=== PATIENT | male | born 1985 | race Two or more races ===

== ENCOUNTER 2018-01-01 23:38 | Emergency (ER) ==
[2018-01-01 23:52] VITALS: BP 124/78; TEMP 97.8; BMI 20.5
--- NOTE | 2018-01-02 00:39 | ED.PDOC ---
General ED Provider: Dr. ALEXANDER EDWARD Chief Complaint: Sore Throat Stated Complaint: Natalya is a 32 year old male who states he has had flu like symtoms for the past week exposed to others with the same. he comes to the Er stating that he still has symptoms and wanted to be checked out. Time Seen by Physician: 00:36 Mode of Arrival: Walk-In Information Source: Patient Exam Limitations: No limitations Nursing and Triage Documentation Reviewed and Agree: Yes Reviewed sepsis parameters & appropriate labs ordered?: No System Inflammatory Response Syndrome: Not Applicable Sepsis Protocol: For patient's 13 years and over: Temp is 96.8 and below OR 101 and greater Pulse >90 BPM Resp >20/minute Acutely Altered Mental Status Are patient's symptoms suggestive of a new infection, such as: -Pneumonia -Skin, Soft Tissue -Endocarditis -UTI -Bone, Joint Infection -Implantable Device -Acute Abdominal Infection -Wound Infection -Meningitis -Blood Stream Catheter Infection -Unknown System Inflammatory Response Syndrome: Not Applicable Review of Systems - Review Of Systems Constitutional: Reports: Fever, Malaise Eyes: Reports: No symptoms Ears, Nose, Mouth, Throat: Reports: No symptoms Respiratory: Reports: No symptoms Cardiac: Reports: No symptoms GI: Reports: No symptoms : Reports: No symptoms Musculoskeletal: Reports: No symptoms Skin: Reports: No symptoms Neurological: Reports: Anxiety Endocrine: Reports: No symptoms Hematologic/Lymphatic: Reports: No symptoms All Other Systems: Reviewed and Negative Past Medical History - Past Medical History Previously Healthy: Yes Endocrine: Reports: None Cardiovascular: Reports: None Respiratory: Reports: None Hematological: Reports: None Gastrointestinal: Reports: None Genitourinary: Reports: None Neuro/Psych: Reports: Anxiety Musculoskeletal: Reports: None Cancer: Reports: None - Surgical History General Surgical History: Reports: Tonsillectomy - Family History Family History: Reports: Unknown - Social History Smoking Status: Current every day smoker, Light tobacco smoker Hx Substance Use: No Alcohol Screening: None - Immunizations Tetanus Shot up to Date: No (unsure) Physical Exam - Physical Exam Appearance: Well-appearing, No pain distress, Well-nourished Eyes: QUINTON, EOMI, Conjunctiva clear ENT: Ears normal, Nose normal, Oropharynx normal Respiratory: Airway patent, Breath sounds clear, Breath sounds equal, Respirations nonlabored Cardiovascular: RRR, Pulses normal, No rub, No murmur GI/: Soft, Nontender, No masses, Bowel sounds normal, No Organomegaly Musculoskeletal: Normal strength, ROM intact, No edema, No calf tenderness Skin: Warm, Dry, Normal color Neurological: Sensation intact, Motor intact, Reflexes intact, Cranial nerves intact, Alert, Oriented Psychiatric: Affect appropriate, Mood appropriate Critical Care Note - Critical Care Note Total Time (mins): 0 Course - Course Orders, Labs, Meds: Lab Review 01/02/18 00:03 Influenza A (Rapid) Negative by naat Influenza B (Rapid) Negative by naat Orders Category Date Time Status FLU A/B MOLECULAR Stat LAB 01/02/18 00:03 Completed RAPID STREP SCREEN [MOLECULAR GROUP A STREP] Stat LAB 01/02/18 00:03 Completed Vital Signs: Temp Pulse Resp BP Pulse Ox 01/01/18 23:39 97.8 F 96 H 20 124/78 97 Departure - Departure Time of Disposition: 00:38 Disposition: HOME SELF-CARE Discharge Problem: Viral syndrome Instructions: Viral Syndrome (ED) Condition: Fair Pt referred to PMD for follow-up: Yes IPMP verified?: No Additional Instructions: Push fluids Alternate Tylenol with Ibuprofen Follow up with PCP in 3 days Allergies/Adverse Reactions: Allergies No Known Allergies Allergy (Unverified 01/01/18 23:49) Home Medications: Ambulatory Orders 1 [No Reported Medications] 01/01/18 Disposition Discussed With: Patient, Family
== END 2018-01-02 00:30 | disposition home or self-care (01) ==
LOC: ED 23:38
DX: B34.9 Viral infection, unspecified (principal); F17.210 Nicotine dependence, cigarettes, uncomplicated
CPT/HCPCS: 87502; 87651; 99282

== ENCOUNTER 2018-08-02 15:12 | Emergency (ER) ==
[2018-08-02 15:16] VITALS: BP 132/91; TEMP 98; BMI 19.6
--- NOTE | 2018-08-02 15:33 | ED.PDOC ---
General ED Provider: Dr. NIRAV PATRICIO Chief Complaint: Tooth Problem Stated Complaint: dental pain Time Seen by Physician: 15:15 Mode of Arrival: Walk-In Information Source: Patient Exam Limitations: No limitations Primary Care Provider: BART LEMA APRN Nursing and Triage Documentation Reviewed and Agree: Yes Does patient meet sepsis criteria?: No If yes, has appropriate treatment been initiated?: No System Inflammatory Response Syndrome: Not Applicable Sepsis Protocol: For patient's 13 years and over: Temp is 96.8 and below OR 101 and greater Pulse >90 BPM Resp >20/minute Acutely Altered Mental Status Are patient's symptoms suggestive of a new infection, such as: -Pneumonia -Skin, Soft Tissue -Endocarditis -UTI -Bone, Joint Infection -Implantable Device -Acute Abdominal Infection -Wound Infection -Meningitis -Blood Stream Catheter Infection -Unknown EENT Complaint Exam - Dental/Oral Complaint/Exam Mechanism of Injury: No known trauma Onset/Duration: 1 day Symptoms Are: Still present Timing: Constant Initial Severity: Moderate Current Severity: Moderate Character: Reports: Aching, Throbbing Aggravating: Reports: None Alleviating: Reports: None Associated Signs and Symptoms: Denies: Swelling, Discharge, Fever, Foul odor, Foul taste in mouth Related History: Reports: Similar episode Cardiac Risk Factors: Reports: None Dental/Oral Surgical History: Reports: None Tooth Findings: Present: Gross decay, Gross caries Cervical Lymphadenopathy Present: No Facial Swelling Present: No Bleeding Present: No Oropharynx Findings: Absent: Clots, Active bleeding Septal Hematoma: No Foreign Body Present: No Dysphagia Present: No Drooling Present: No Asymmetrical Tonsillar Swelling Present: No Uvula Midline: Yes Luba-tonsillar Fluctuence: No Trismus Present: No Palatal Petechiae Present: No Scarlatinaform Rash Present: No Lesions: Absent: Lip, Gums, Tongue, Buccal Mucosa, Pharynx Teeth Picture: 1 - decay Differential Diagnoses: Dental Caries, Fractured Tooth Review of Systems - Review Of Systems Constitutional: Reports: No symptoms Eyes: Reports: No symptoms Ears, Nose, Mouth, Throat: Reports: No symptoms Respiratory: Reports: No symptoms Cardiac: Reports: No symptoms GI: Reports: No symptoms : Reports: No symptoms Musculoskeletal: Reports: No symptoms Skin: Reports: No symptoms Neurological: Reports: No symptoms Endocrine: Reports: No symptoms Hematologic/Lymphatic: Reports: No symptoms All Other Systems: Reviewed and Negative Past Medical History - Past Medical History Previously Healthy: Yes Endocrine: Reports: None Cardiovascular: Reports: None Respiratory: Reports: None Hematological: Reports: None Gastrointestinal: Reports: None Genitourinary: Reports: None Neuro/Psych: Reports: Anxiety Musculoskeletal: Reports: None Cancer: Reports: None - Surgical History General Surgical History: Reports: Tonsillectomy - Family History Family History: Reports: Unknown - Social History Smoking Status: Current every day smoker, Light tobacco smoker Hx Substance Use: No Alcohol Screening: None Physical Exam - Physical Exam Appearance: Well-appearing, No pain distress, Well-nourished Eyes: QUINTON, EOMI, Conjunctiva clear ENT: Ears normal, Nose normal, Oropharynx normal Respiratory: Airway patent, Breath sounds clear, Breath sounds equal, Respirations nonlabored Cardiovascular: RRR, Pulses normal, No rub, No murmur GI/: Soft, Nontender, No masses, Bowel sounds normal, No Organomegaly Musculoskeletal: Normal strength, ROM intact, No edema, No calf tenderness Skin: Warm, Dry, Normal color Neurological: Sensation intact, Motor intact, Reflexes intact, Cranial nerves intact, Alert, Oriented Psychiatric: Affect appropriate, Mood appropriate Critical Care Note - Critical Care Note Total Time (mins): 0 Course - Course Vital Signs: Temp Pulse Resp BP Pulse Ox 08/02/18 15:13 98.0 F 82 16 132/91 H 98 Departure - Departure Time of Disposition: 15:31 Disposition: HOME SELF-CARE Discharge Problem: Toothache Instructions: Toothache (ED) Condition: Good Pt referred to PMD for follow-up: Yes IPMP verified?: No Additional Instructions: Please call your Family Physician as soon as possible to schedule a follow-up appointment. Prescriptions: Amoxicillin 500 mg PO Q8HR #21 tablet Hydrocodone/Acetaminophen [[place] 10-325 Tablet] 1 each PO Q8HR #14 tablet Allergies/Adverse Reactions: Allergies No Known Allergies Allergy (Verified 08/02/18 15:16) Home Medications: Ambulatory Orders Amoxicillin 500 mg PO Q8HR #21 tablet 08/02/18 Citalopram Hydrobromide [Celexa] 20 mg PO DAILY 08/02/18 Hydrocodone/Acetaminophen [[place] 10-325 Tablet] 1 each PO Q8HR #14 tablet
== END 2018-08-02 15:38 | disposition home or self-care (01) ==
LOC: ED 15:12
DX: K08.89 Other specified disorders of teeth and supporting structures (principal); K02.7 Dental root caries; F17.210 Nicotine dependence, cigarettes, uncomplicated
CPT/HCPCS: 99282

== ENCOUNTER 2018-08-06 23:42 | Emergency (ER) ==
[2018-08-06 23:54] VITALS: BP 150/82; TEMP 97.1
[2018-08-07] MEDS ORDERED: DILAUDID 1 MG/ML SYRINGE IM STA (00:04)
[2018-08-07] MEDS ORDERED: ZOFRAN ODT PO STA (00:04)
[2018-08-07] MEDS ORDERED: TORADOL IM STA (00:04)
--- NOTE | 2018-08-07 00:09 | ED.PDOC ---
General ED Provider: Dr. ALEXANDER EDWARD Chief Complaint: Tooth Problem Stated Complaint: Left upper premolar severe dental pain for 2 days despite takng hydrocordone 10/325 and Motrin 800mg with Amoxil. Time Seen by Physician: 00:01 Mode of Arrival: Walk-In Information Source: Patient Exam Limitations: Clinical condition (due to severe pain ) Primary Care Provider: BART LEMA APRN Nursing and Triage Documentation Reviewed and Agree: Yes Does patient meet sepsis criteria?: No If yes, has appropriate treatment been initiated?: No System Inflammatory Response Syndrome: Not Applicable Sepsis Protocol: For patient's 13 years and over: Temp is 96.8 and below OR 101 and greater Pulse >90 BPM Resp >20/minute Acutely Altered Mental Status Are patient's symptoms suggestive of a new infection, such as: -Pneumonia -Skin, Soft Tissue -Endocarditis -UTI -Bone, Joint Infection -Implantable Device -Acute Abdominal Infection -Wound Infection -Meningitis -Blood Stream Catheter Infection -Unknown EENT Complaint Exam - Dental/Oral Complaint/Exam Mechanism of Injury: No known trauma Onset/Duration: 1 week Symptoms Are: Still present Timing: Constant Initial Severity: Severe Current Severity: Severe Location: Right lower molar area Character: Reports: Aching, Throbbing Aggravating: Reports: Heat, Chewing, Exertion Alleviating: Reports: Cold Associated Signs and Symptoms: Reports: Swelling, Foul odor Dental/Oral Surgical History: Reports: None Tooth Findings: Present: Gross decay, Gross caries, Dental fracture, Abcess Facial Swelling Present: Yes (mild ) Bleeding Present: No Oropharynx Findings: Absent: Clots, Active bleeding Septal Hematoma: No Foreign Body Present: No Dysphagia Present: No Drooling Present: No Asymmetrical Tonsillar Swelling Present: No Uvula Midline: No Luba-tonsillar Fluctuence: No Trismus Present: No Palatal Petechiae Present: No Scarlatinaform Rash Present: No Lesions: Absent: Lip, Gums, Tongue, Buccal Mucosa, Pharynx Exanthem: Absent: Lip, Gums, Tongue, Buccal Mucosa, Pharynx Vesicles: Absent: Lip, Gums, Tongue, Buccal Mucosa, Pharynx Teeth Picture: 1 - area of pain 2 - Gross decay Throughout 3 - Gross decay Throughout Differential Diagnoses: Dental Abcess, Dental Caries, Gingivitis Review of Systems - Review Of Systems Constitutional: Reports: No symptoms Eyes: Reports: No symptoms Ears, Nose, Mouth, Throat: Reports: Mouth pain, Mouth swelling, Loose teeth Respiratory: Reports: No symptoms Cardiac: Reports: No symptoms GI: Reports: No symptoms : Reports: No symptoms Musculoskeletal: Reports: No symptoms Skin: Reports: No symptoms Neurological: Reports: Anxiety Endocrine: Reports: No symptoms Hematologic/Lymphatic: Reports: No symptoms All Other Systems: Reviewed and Negative Past Medical History - Past Medical History Previously Healthy: Yes Endocrine: Reports: None Cardiovascular: Reports: None Respiratory: Reports: None Hematological: Reports: None Gastrointestinal: Reports: None Genitourinary: Reports: None Neuro/Psych: Reports: Anxiety Musculoskeletal: Reports: None Cancer: Reports: None - Surgical History General Surgical History: Reports: Tonsillectomy - Family History Family History: Reports: Unknown - Social History Smoking Status: Current every day smoker, Heavy tobacco smoker Hx Substance Use: No Alcohol Screening: Occasionally - Immunizations Tetanus Shot up to Date: Yes Physical Exam - Physical Exam Appearance: Ill-appearing Ill-appearing: Moderate Pain Distress: Severe Eyes: QUINTON, EOMI, Conjunctiva clear Respiratory: Airway patent, Breath sounds clear, Breath sounds equal, Respirations nonlabored Cardiovascular: Pulses normal, No rub, No murmur, Tachycardia Musculoskeletal: Normal strength, ROM intact, No edema, No calf tenderness Skin: Warm, Dry, Normal color Neurological: Alert, Oriented Psychiatric: Anxious Re-Evaluation - Re-Evaluation Time of Re-Evaluation: 00:57 Status: Improved Vital Signs Stable: Yes Pain Level: improved. Critical Care Note - Critical Care Note Total Time (mins): 0 Course - Course Orders, Labs, Meds: Orders Category Date Time Status Hydromorphone HCl [Dilaudid 1 mg/ml Syringe] MEDS 08/07/18 00:04 Stat 1 mg IM ONCE STA Ketorolac Tromethamine [Toradol] MEDS 08/07/18 00:04 Stat 60 mg IM ONCE STA Ondansetron [Zofran Odt] MEDS 08/07/18 00:04 Stat 4 mg PO ONCE STA Medications Discontinued Medications Generic Name Dose Route Start Last Admin Trade Name Freq PRN Reason Stop Dose Admin Hydromorphone HCl 1 mg 08/07/18 00:04 Dilaudid 1 Mg/Ml Syringe IM 08/07/18 00:05 ONCE STA Ketorolac Tromethamine 60 mg 08/07/18 00:04 Toradol IM 08/07/18 00:05 ONCE STA Ondansetron HCl 4 mg 08/07/18 00:04 Zofran Odt PO 08/07/18 00:05 ONCE STA Vital Signs: Temp Pulse Resp BP Pulse Ox 08/06/18 23:45 97.1 F L 110 H 24 150/82 H 96 Departure - Departure Time of Disposition: 00:50 Disposition: HOME SELF-CARE Discharge Problem: Toothache, Dental caries Instructions: Toothache (ED) Condition: Fair Pt referred to PMD for follow-up: Yes IPMP verified?: Yes (last filled was few days and was consistent with history. ) Additional Instructions: Take medications as prescribed Follow up with Dentist in the morning. Prescriptions: Oxycodone-Acetaminophe 7.5-325 [Percocet 7.5-325] 1 tab PO Q6H #10 tablet Allergies/Adverse Reactions: Allergies No Known Allergies Allergy (Verified 08/06/18 23:54) Home Medications: Ambulatory Orders Amoxicillin 500 mg PO Q8HR #21 tablet 08/02/18 Citalopram Hydrobromide [Celexa] 20 mg PO DAILY 08/02/18 Hydrocodone/Acetaminophen [[place] 10-325 Tablet] 1 each PO Q8HR PRN 08/06/18 Oxycodone-Acetaminophe 7.5-325 [Percocet 7.5-325] 1 tab PO Q6H #10 tablet Disposition Discussed With: Patient, Family
== END 2018-08-07 01:07 | disposition home or self-care (01) ==
LOC: ED 23:42
DX: K08.89 Other specified disorders of teeth and supporting structures (principal); K02.7 Dental root caries; K04.7 Periapical abscess without sinus; S02.5XXA Fracture of tooth (traumatic), initial encounter for closed fracture; F17.210 Nicotine dependence, cigarettes, uncomplicated
CPT/HCPCS: 96372; 99282